=== PATIENT | male | born 1945 | race Caucasian/White ===

== ENCOUNTER 2024-10-12 10:04 | Inpatient (IN) | payer BC ==
[~2024-10-12] VITALS: Ht 177.8 cm; Wt 72.6 kg
[2024-10-12] MEDS ORDERED: TAMS-3 PO (10:21)
[2024-10-12] MEDS ORDERED: POLY17PO4 PO (10:21)
[2024-10-12] MEDS ORDERED: AMIO200T7 PO (10:21)
[2024-10-12] MEDS ORDERED: APIX5TAB4 PO (10:21)
[2024-10-12] MEDS ORDERED: FOSF3PAC PO (10:21)
[2024-10-12] MEDS ORDERED: SENN-18 PO (10:21)
[2024-10-12] MEDS ORDERED: BISA10SU61 RC (10:21)
[2024-10-12] MEDS ORDERED: MAGN400O6 PO (10:21)
[2024-10-12] MEDS: IV NORMAL SALINE 1000 ML BAG IV ONE ×3 (10:30→12:38)
[2024-10-12 10:56] LABS: BASOPHILS # (AUTO) 0.1 K/UL (0.0-0.2); BASOPHILS % (AUTO) 0.9 % (0.0-2.0); EOSINOPHILS # (AUTO) 0.1 K/uL (0.0-0.7); EOSINOPHILS % (AUTO) 1.7 % (0.0-7.0); HEMATOCRIT 34.8 % (36.7-47.1); HEMOGLOBIN 11.5 g/dL (12.5-16.3); LYMPHOCYTES # (AUTO) 1.4 K/uL (0.8-4.8); LYMPHOCYTES % (AUTO) 16.5 % (20.5-51.5); MEAN CORPUSCULAR HEMOGLOBIN 30.2 uug (23.8-33.4); MEAN CORPUSCULAR HGB CONC 33 g/dL (32.5-36.3); MEAN CORPUSCULAR VOLUME 91.4 fL (73.0-96.2); MONOCYTES # (AUTO) 0.7 K/uL (0.1-1.30); MONOCYTES % (AUTO) 7.6 % (0.0-11.0); NEUTROPHILS # (AUTO) 6.3 K/uL (1.8-8.9); NEUTROPHILS % (AUTO) 73.3 % (38.5-71.5); PLATELET COUNT (AUTO) 247 K/uL (152-348); RED CELL DISTRIBUTION WIDTH 15.5 % (12.1-16.2); WHITE BLOOD COUNT (AUTO) 8.6 K/uL (3.6-10.2)
[2024-10-12 11:05] LABS: DIFFERENTIAL COMMENT 1
[2024-10-12 11:09] LABS: CALCIUM 10.1 mg/dL (8.5-10.1); CARBON DIOXIDE 29 mmol/L (21-32); CHLORIDE 107 mmol/L (98-107); CREATININE 1.3 mg/dL (0.6-1.3); GLUCOSE 110 mg/dL (74-106); SODIUM SERUM 144 mmol/L (136-145); UREA NITROGEN, BLOOD 23 mg/dL (7-18)
[2024-10-12 11:15] LABS: *BILIRUBIN,URIN NEGATIVE (NEGATIVE); *BLOOD, URINE 3+ (NEGATIVE); *CLARITY,URINE CLEAR (CLEAR); *COLOR,URINE YELLOW (YELLOW); *KETONES,URINE TRACE (NEGATIVE); *PROTEIN,URINE 3+ (NEGATIVE); *UROBILINOGEN,URINE 0.2 E.U./dl (NORMAL); LEUKOCYTE ESTERASE ,URINE TRACE (NEGATIVE); NITRITE, URINE NEGATIVE (NEGATIVE); PH,URINE 5.5 (5.0-8.0); UGLUCOSE NEGATIVE (NEGATIVE)
[2024-10-12 11:19] LABS: BACTERIA,URINE MODERATE /HPF (NONE SEEN); RBC,URINE 50-80 /HPF (0-3); WBC,URINE 20-50 /HPF (0-3)
[2024-10-12 11:21] LABS: LACTIC ACID 3.1 mmol/L (0.4-2.0)
[2024-10-12 11:22] LABS: ALANINE AMINOTRANSFERASE 18 U/L (16-63); ALBUMIN 2.7 g/dL (3.4-5.0); ALKALINE PHOSPHATASE 112 U/L (50-136); ASPARTATE AMINOTRANSFERASE 11 U/L (15-37); BILIRUBIN,DIRECT 0.1 mg/dL (0.0-0.2); BILIRUBIN,TOTAL 0.6 mg/dL (0.2-1.0); NT-PRO BNP 441 pg/mL (0-125)
[2024-10-12] MEDS ORDERED: ONDANSETRON 4 MG/2 ML VIAL IV PRN (14:00)
[2024-10-12] MEDS ORDERED: CEFTRIAXONE /D5W 50ML IVPB **ER PYXIS IV ONE (14:06)
[2024-10-12] MEDS: CEFTRIAXONE 1 G in IV DEXTROSE 5% 50 ML IV SCH (14:07)
[2024-10-12 15:50] VITALS: BP 131/63; TEMP 97.3; O2SAT 98
[2024-10-12] MEDS: IV NS 1000 ML 1,000 ML IV PRN (17:09)
[2024-10-12] MEDS ORDERED: APIX5TAB PO (17:43)
[2024-10-12] MEDS ORDERED: MAG355OR18 PO (17:43)
[2024-10-12] MEDS ORDERED: AMIN30LI2 PO (17:43)
[2024-10-12] MEDS ORDERED: FOLI0.8T23 PO (17:43)
[2024-10-12] MEDS ORDERED: BISACODYL 10 MG SUPP.RECT RC PRN (18:15)
[2024-10-12] MEDS: MIRALAX 17 GM POWD.PACK PO SCH (18:15)
[2024-10-12] MEDS ORDERED: MEROPENEM 500 MG in IV NORMAL SALINE 50 ML IV SCH ×2 (18:15→22:00)
[2024-10-12] MEDS ORDERED: Medication Not On Formulary EA (Amino Acids/Protein Hydrolys (Pro-Stat Liquid) 30 ML) PO SCH (18:15)
[2024-10-12] MEDS: APIXABAN 5 MG TABLET PO SCH (18:28)
[2024-10-12 20:00] VITALS: BP 89/59; TEMP 98.3; O2SAT 98
[2024-10-12] MEDS: TAMSULOSIN HCL 0.4 MG CAP.SR.24H PO SCH (20:27)
[2024-10-12] MEDS: ACETAMINOPHEN 325 MG TABLET PO PRN (20:27)
[2024-10-12] MEDS: MEROPENEM 500 MG in IV NORMAL SALINE 50 ML IV SCH (20:33)
[2024-10-12 23:58] VITALS: BP 126/55; TEMP 97.1; O2SAT 99
[2024-10-13 04:35] VITALS: BP 102/64; TEMP 97.1; O2SAT 98
[2024-10-13 06:51] LABS: BASOPHILS % (AUTO) 0.4 % (0.0-2.0); EOSINOPHILS # (AUTO) 0.2 K/uL (0.0-0.7); EOSINOPHILS % (AUTO) 3.1 % (0.0-7.0); HEMATOCRIT 31.2 % (36.7-47.1); HEMOGLOBIN 10.7 g/dL (12.5-16.3); LYMPHOCYTES # (AUTO) 2.1 K/uL (0.8-4.8); LYMPHOCYTES % (AUTO) 29.4 % (20.5-51.5); MEAN CORPUSCULAR HEMOGLOBIN 30.9 uug (23.8-33.4); MEAN CORPUSCULAR HGB CONC 34 g/dL (32.5-36.3); MEAN CORPUSCULAR VOLUME 90.4 fL (73.0-96.2); MONOCYTES # (AUTO) 0.5 K/uL (0.1-1.30); MONOCYTES % (AUTO) 7.8 % (0.0-11.0); NEUTROPHILS # (AUTO) 4.2 K/uL (1.8-8.9); NEUTROPHILS % (AUTO) 59.3 % (38.5-71.5); PLATELET COUNT (AUTO) 217 K/uL (152-348); RED BLOOD CELL COUNT(AUTO) 3.45 MIL/uL (4.06-5.63); RED CELL DISTRIBUTION WIDTH 15.3 % (12.1-16.2); WHITE BLOOD COUNT (AUTO) 7.1 K/uL (3.6-10.2)
[2024-10-13 06:54] LABS: DIFFERENTIAL COMMENT 1
[2024-10-13 07:06] LABS: CALCIUM 9.4 mg/dL (8.5-10.1); CARBON DIOXIDE 26 mmol/L (21-32); CHLORIDE 110 mmol/L (98-107); CREATININE 1.2 mg/dL (0.6-1.3); GLUCOSE 91 mg/dL (74-106); MAGNESIUM 1.8 mg/dL (1.8-2.4); POTASSIUM 4.3 mmol/L (3.5-5.1); SODIUM SERUM 142 mmol/L (136-145); UREA NITROGEN, BLOOD 18 mg/dL (7-18)
[2024-10-13 08:00] VITALS: BP 148/70; TEMP 98; O2SAT 97
[2024-10-13] MEDS: PROTEIN SUPPLEMENT (PROSTAT) 30 ML LIQUID PO SCH (09:00)
[2024-10-13] MEDS: ENOXAPARIN SODIUM 40 MG/0.4 ML DISP.SYRIN SQ SCH (09:00)
[2024-10-13] MEDS: SENNOSIDES 1 TABLET PO SCH (09:00)
[2024-10-13] MEDS: AMIODARONE HCL 200 MG TABLET PO SCH (09:24)
[2024-10-13] MEDS: FOLIC ACID/VITAMIN B COMP W-C TABLET PO SCH (09:26)
[2024-10-13 11:37] VITALS: BP 142/58; TEMP 97.9; O2SAT 99
[2024-10-13 15:31] VITALS: BP 132/70; TEMP 97.7; O2SAT 98
[2024-10-13 19:45] VITALS: BP 99/63; TEMP 97.9; O2SAT 97
[2024-10-14 00:35] VITALS: BP 137/68; TEMP 98; O2SAT 95
[2024-10-14 05:10] VITALS: BP 128/63; TEMP 97.9; O2SAT 96
[2024-10-14 06:44] LABS: BASOPHILS # (AUTO) 0.1 K/UL (0.0-0.2); BASOPHILS % (AUTO) 1.2 % (0.0-2.0); EOSINOPHILS # (AUTO) 0.3 K/uL (0.0-0.7); EOSINOPHILS % (AUTO) 3.7 % (0.0-7.0); HEMATOCRIT 31.3 % (36.7-47.1); HEMOGLOBIN 10.7 g/dL (12.5-16.3); LYMPHOCYTES # (AUTO) 1.9 K/uL (0.8-4.8); LYMPHOCYTES % (AUTO) 26.5 % (20.5-51.5); MEAN CORPUSCULAR HGB CONC 34 g/dL (32.5-36.3); MEAN CORPUSCULAR VOLUME 90.4 fL (73.0-96.2); MONOCYTES # (AUTO) 0.5 K/uL (0.1-1.30); MONOCYTES % (AUTO) 6.9 % (0.0-11.0); NEUTROPHILS # (AUTO) 4.5 K/uL (1.8-8.9); NEUTROPHILS % (AUTO) 61.7 % (38.5-71.5); PLATELET COUNT (AUTO) 207 K/uL (152-348); RED BLOOD CELL COUNT(AUTO) 3.46 MIL/uL (4.06-5.63); RED CELL DISTRIBUTION WIDTH 15.4 % (12.1-16.2); WHITE BLOOD COUNT (AUTO) 7.3 K/uL (3.6-10.2)
[2024-10-14 06:57] LABS: CALCIUM 9.2 mg/dL (8.5-10.1); CARBON DIOXIDE 24 mmol/L (21-32); CHLORIDE 111 mmol/L (98-107); CREATININE 1.1 mg/dL (0.6-1.3); GLUCOSE 88 mg/dL (74-106); MAGNESIUM 1.9 mg/dL (1.8-2.4); PHOSPHOROUS 2.8 mg/dL (2.5-4.9); POTASSIUM 3.7 mmol/L (3.5-5.1); SODIUM SERUM 141 mmol/L (136-145); UREA NITROGEN, BLOOD 20 mg/dL (7-18)
[2024-10-14 07:07] LABS: DIFFERENTIAL COMMENT 1
[2024-10-14 08:00] VITALS: BP 134/76; TEMP 97.5; O2SAT 99
[2024-10-14] MEDS: MEROPENEM 500 MG in IV NORMAL SALINE 50 ML IV SCH (08:46)
[2024-10-14 12:00] VITALS: BP 137/74; TEMP 97.9; O2SAT 98
[2024-10-14 16:01] VITALS: BP 131/68; TEMP 97.2; O2SAT 97
[2024-10-14 20:00] VITALS: BP 129/70; TEMP 97.8; O2SAT 97
[2024-10-15 06:00] VITALS: BP 158/84; TEMP 97.8; O2SAT 96
[2024-10-15 07:11] LABS: CALCIUM 9.9 mg/dL (8.5-10.1); CARBON DIOXIDE 26 mmol/L (21-32); CHLORIDE 110 mmol/L (98-107); CREATININE 1.2 mg/dL (0.6-1.3); GLUCOSE 91 mg/dL (74-106); MAGNESIUM 2.1 mg/dL (1.8-2.4); SODIUM SERUM 141 mmol/L (136-145); UREA NITROGEN, BLOOD 17 mg/dL (7-18)
[2024-10-15 07:17] LABS: BASOPHILS # (AUTO) 0.1 K/UL (0.0-0.2); BASOPHILS % (AUTO) 0.7 % (0.0-2.0); DIFFERENTIAL COMMENT 0; EOSINOPHILS # (AUTO) 0.2 K/uL (0.0-0.7); EOSINOPHILS % (AUTO) 2.6 % (0.0-7.0); HEMATOCRIT 36.7 % (36.7-47.1); HEMOGLOBIN 11.8 g/dL (12.5-16.3); LYMPHOCYTES # (AUTO) 1.8 K/uL (0.8-4.8); LYMPHOCYTES % (AUTO) 22.2 % (20.5-51.5); MEAN CORPUSCULAR HEMOGLOBIN 30.8 uug (23.8-33.4); MEAN CORPUSCULAR HGB CONC 32 g/dL (32.5-36.3); MEAN CORPUSCULAR VOLUME 96.1 fL (73.0-96.2); MONOCYTES # (AUTO) 0.7 K/uL (0.1-1.30); MONOCYTES % (AUTO) 7.9 % (0.0-11.0); NEUTROPHILS # (AUTO) 5.5 K/uL (1.8-8.9); NEUTROPHILS % (AUTO) 66.6 % (38.5-71.5); PLATELET COUNT (AUTO) 205 K/uL (152-348); RED BLOOD CELL COUNT(AUTO) 3.82 MIL/uL (4.06-5.63); RED CELL DISTRIBUTION WIDTH 15.9 % (12.1-16.2); WHITE BLOOD COUNT (AUTO) 8.2 K/uL (3.6-10.2)
[2024-10-15 07:18] LABS: POTASSIUM 5.1 mmol/L (3.5-5.1)
[2024-10-15] MEDS: FLUDROCORTISONE ACETATE 0.1 MG TABLET PO SCH (11:30)
[2024-10-15 12:00] VITALS: BP 110/65; TEMP 97.8; O2SAT 98
[2024-10-15 16:00] VITALS: BP 126/70; TEMP 97.6; O2SAT 97
[2024-10-15 20:00] VITALS: BP 132/72; TEMP 98.1; O2SAT 97
[2024-10-16 06:00] VITALS: BP 141/71; TEMP 98.4; O2SAT 95
[2024-10-16 06:52] LABS: BASOPHILS # (AUTO) 0.1 K/UL (0.0-0.2); BASOPHILS % (AUTO) 0.9 % (0.0-2.0); EOSINOPHILS # (AUTO) 0.3 K/uL (0.0-0.7); EOSINOPHILS % (AUTO) 3.6 % (0.0-7.0); HEMATOCRIT 32.4 % (36.7-47.1); LYMPHOCYTES # (AUTO) 1.6 K/uL (0.8-4.8); LYMPHOCYTES % (AUTO) 22.8 % (20.5-51.5); MEAN CORPUSCULAR HEMOGLOBIN 30.6 uug (23.8-33.4); MEAN CORPUSCULAR HGB CONC 34 g/dL (32.5-36.3); MEAN CORPUSCULAR VOLUME 89.9 fL (73.0-96.2); MONOCYTES # (AUTO) 0.8 K/uL (0.1-1.30); MONOCYTES % (AUTO) 10.9 % (0.0-11.0); NEUTROPHILS # (AUTO) 4.4 K/uL (1.8-8.9); NEUTROPHILS % (AUTO) 61.8 % (38.5-71.5); PLATELET COUNT (AUTO) 205 K/uL (152-348); RED CELL DISTRIBUTION WIDTH 14.8 % (12.1-16.2); WHITE BLOOD COUNT (AUTO) 7.1 K/uL (3.6-10.2)
[2024-10-16 07:03] LABS: CALCIUM 9.4 mg/dL (8.5-10.1); CARBON DIOXIDE 29 mmol/L (21-32); CHLORIDE 108 mmol/L (98-107); CREATININE 1.2 mg/dL (0.6-1.3); DIFFERENTIAL COMMENT 1; GLUCOSE 89 mg/dL (74-106); MAGNESIUM 1.9 mg/dL (1.8-2.4); PHOSPHOROUS 2.9 mg/dL (2.5-4.9); POTASSIUM 4.3 mmol/L (3.5-5.1); SODIUM SERUM 141 mmol/L (136-145); UREA NITROGEN, BLOOD 17 mg/dL (7-18)
[2024-10-16 11:38] VITALS: BP 116/67; TEMP 97.9; O2SAT 98
[2024-10-16] MEDS ORDERED: FLUD0.1T3 PO (14:11)
[2024-10-16] MEDS ORDERED: ERTA1VIA4 IJ (14:11)
[2024-10-16 15:51] VITALS: BP 128/75; TEMP 97.4; O2SAT 96
[2024-10-16 19:00] VITALS: BP 134/69; TEMP 98.4; O2SAT 95
[2024-10-17 06:00] VITALS: BP 142/76; TEMP 98; O2SAT 98
[2024-10-17 08:58] VITALS: BP 150/74; TEMP 97.6; O2SAT 97
[2024-10-17] MEDS ORDERED: FLUD0.1T PO (09:20)
[2024-10-17 11:44] VITALS: BP 131/69; TEMP 98.4; O2SAT 97
[2024-10-17 15:59] VITALS: BP 148/73; TEMP 98.2; O2SAT 96
== END 2024-10-17 17:15 | disposition home health service (06) | DRG 698 ==
LOC: ER 10:04 → TELE3 14:44 → MEDSURG3 10-14 11:45
PROVIDERS: ADMIT Nurse Practitioner Acute Care; ATTEND Nurse Practitioner Acute Care
DX: T83.511A Infection and inflammatory reaction due to indwelling urethral catheter, initial encounter (principal); A41.50 Gram-negative sepsis, unspecified; G93.41 Metabolic encephalopathy; B37.7 Candidal sepsis; R65.20 Severe sepsis without septic shock; E44.0 Moderate protein-calorie malnutrition; E87.20 Acidosis, unspecified; D68.59 Other primary thrombophilia; E27.40 Unspecified adrenocortical insufficiency; N39.0 Urinary tract infection, site not specified; I95.1 Orthostatic hypotension; D64.9 Anemia, unspecified; E88.09 Other disorders of plasma-protein metabolism, not elsewhere classified; I48.91 Unspecified atrial fibrillation; Z79.01 Long term (current) use of anticoagulants; Z74.09 Other reduced mobility; N40.1 Benign prostatic hyperplasia with lower urinary tract symptoms; R33.8 Other retention of urine; M21.371 Foot drop, right foot; Z86.711 Personal history of pulmonary embolism; Z86.16 Personal history of COVID-19; N18.9 Chronic kidney disease, unspecified; I12.9 Hypertensive chronic kidney disease with stage 1 through stage 4 chronic kidney disease, or unspecified chronic kidney disease; R97.20 Elevated prostate specific antigen [PSA]; G90.9 Disorder of the autonomic nervous system, unspecified; N41.9 Inflammatory disease of prostate, unspecified
CPT/HCPCS: 36415; 71045; 82533; 83605; 83735; 84100; 84153; 84484; 85025; 87040; A4606; A4663; G0378; J0696; J1650; J2185; J7040